=== PATIENT | male | born 2000 | race Caucasian/White ===

== ENCOUNTER → 2025-10-17 | Outpatient (CLI) | payer OTHER, SELFPAY ==
--- NOTE | 2025-10-17 14:01 | XR_ITS ---
Examination: Tibia-Fibula, right, 2 views Technique: Tibia-fibula AP lateral 2 views Date and time of exam: October 17, 2025, 1412 hours INDICATIONS: Right lower leg pain 2 years. FINDINGS: No fracture or dislocation. No cortical bone destruction No foreign body IMPRESSION: No fracture or dislocation
--- NOTE | 2025-10-17 14:11 | XR_ITS ---
Examination: Duplex scan of the lower extremity, unilateral right complete Date and time of exam: October 17, 2025, 1424 hours INDICATIONS: Right calf pain beginning 2 years ago Technique: Duplex scan of the extremity veins using B-mode/grayscale imaging and Doppler spectral analysis and color flow Attention is directed to internal echogenicity, compression and augmentation involving these veins, color flow assessment, spectral analysis Findings: Major deep venous structures in the extremity demonstrate normal course and caliber. There is no evidence of deep vein thrombosis. Normal color flow and spectral analysis Impression: Negative for DVT..
== END | disposition home or self-care (01) ==
PROVIDERS: PCP Internal Medicine; Referring Provider Internal Medicine; Visit Provider Internal Medicine
DX: M79.661 Pain in right lower leg (principal)
CPT/HCPCS: 73590; 93971